=== PATIENT | female | born 1960 | race Hispanic/Latino ===

== ENCOUNTER 2017-11-15 11:51 | Emergency (ER) | payer SELFPAY ==
[2017-11-15] MEDS ORDERED: KETOROLAC TROMETHAMINE 30MG/ML ONE (12:24)
== END 2017-11-15 12:30 | disposition home or self-care (01) ==
LOC: EDH 11:51
DX: B02.9 Zoster without complications (principal); R10.9 Unspecified abdominal pain; M54.9 Dorsalgia, unspecified
CPT/HCPCS: 96372; 99283; J1885

== ENCOUNTER 2019-03-02 15:48 | Emergency (ER) | payer OTHER ==
[2019-03-02] MEDS ORDERED: ONDANSETRON ODT 4 MG TAB ONE (16:29)
[2019-03-02] MEDS ORDERED: ACETAMINOPHEN EXTRA STRENGTH 500 MG TABLET ONE (16:29)
[2019-03-02 17:07] LABS: RAPID GROUP A STREP NEGATIVE (NEGATIVE)
[2019-03-02] MEDS ORDERED: IPRATROPIUM/ALBUTEROL SULFATE 3 ML SOLUTION IH ONE (17:25)
[2019-03-02] MEDS ORDERED: DEXAMETHASONE SOD PHOSPHATE 10MG/ML 1ML VIAL ONE (17:37)
== END 2019-03-02 18:33 | disposition home or self-care (01) ==
LOC: EDH 15:48
DX: J06.0 Acute laryngopharyngitis (principal); J20.9 Acute bronchitis, unspecified
CPT/HCPCS: 71046; 87804 ×2; 87880; 94640; 96372; 99285; J1100

== ENCOUNTER 2023-10-07 11:16 | Emergency (ER) | payer SELFPAY ==
[~2023-10-07] VITALS: Ht 160 cm; Wt 53.5 kg
[~2023-10-07 11:16] MED LIST: AMOX1TAB16 PO
[2023-10-07 11:42] LABS: BASOPHILS # (AUTO) 0.07 K/uL (0.00-0.20); EOSINOPHILS % (AUTO) 1.4 % (0.0-8.0); HEMATOCRIT 42.3 % (36-48); IMMATURE GRANULOCYTE ABSOLUTE 0.02 K/uL (0-1); LYMPHOCYTES # (AUTO) 2.4 K/uL (1.0-4.8); LYMPHOCYTES % (AUTO) 33.2 % (21.0-51.0); MEAN CORPUSCULAR HEMOGLOBIN 32.6 pg (27.0-33.0); MEAN CORPUSCULAR HGB CONC 33.6 g/dL (32.0-36.0); MONOCYTES # (AUTO) 0.6 K/uL (0.1-1.0); MONOCYTES % (AUTO) 7.7 % (3.0-13.0); NEUTROPHILS % (AUTO) 56.4 % (40.0-77.0); PLATELET COUNT (AUTO) 364 K/uL (130-400); RED BLOOD CELL COUNT(AUTO) 4.36 MIL/uL (4.00-5.50); RED CELL DISTRIBUTION WIDTH 13.9 % (11.0-15.5); WHITE BLOOD COUNT (AUTO) 7.1 K/uL (4.8-10.8)
[2023-10-07 12:12] LABS: B-TYPE NATRIURETIC PEPTIDE 54 pg/mL (0-100)
[2023-10-07 12:39] VITALS: BP 117/70; PULSE 58; RESP 20; O2SAT 100
[2023-10-07] MEDS: ONDANSETRON 4MG INJ IVP ONE (12:43)
[2023-10-07] MEDS: KETOROLAC 30MG VIAL (30MG/ML) IVP ONE (12:43)
== END 2023-10-07 12:46 | disposition left against medical advice (07) ==
LOC: EDH 11:16
DX: R07.89 Other chest pain (principal); Z79.899 Other long term (current) drug therapy; Z98.890 Other specified postprocedural states
CPT/HCPCS: 36415; 71045; 74176; 80048; 82550; 83690; 83880; 85025; 93005